=== PATIENT | male | born 1965 | race African-American/Black ===

== ENCOUNTER → 2017-09-30 | Emergency (ER) | payer MEDICAID, OTHER ==
[~2017-09-30] VITALS: Ht 180.3 cm; Wt 81.2 kg
[~2017-09-30] MED LIST: ALBUTEROL SULF8.5 GM INH; AZITHROMYCIN250 MG ORAL; BACTRIM-DS1 EA PO; HYDROCHLOROTH12.5 M2 ORAL; IBUPROFEN600 MG ORAL; KEFLEX500 MG ORAL; KEFLEX500 MG PO; Lidocaine 1% Plain 30 ml INJ ONE; NORCO 10-325 T1 EACH PO; NORCO 5-325 TA1 EACH ORAL; Norco 7.5mg/325mg tab ORAL ONE; POTASSIUM CHLO20 ME1 PO; VICODIN 5-5001 EACH PO; bp med
[2017-09-30 17:30] VITALS: BP 143/98
[2017-09-30 20:37] LABS: EOSINOPHILS % (AUTO) 0.6 % (0.0-3.0); LYMPHOCYTES % (AUTO) 26.7 % (20.0-45.0); MEAN CORPUSCULAR HEMOGLOBIN 27.9 PG (27.0-31.0); MEAN CORPUSCULAR HGB CONC 30.4 G/DL (32.0-36.0); MEAN CORPUSCULAR VOLUME 92 FL (80-99); MEAN PLATELET VOLUME 9.3 FL (6.5-10.1); MONOCYTES % (AUTO) 8.1 % (1.0-10.0); NEUTROPHILS % (AUTO) 63.7 % (45.0-75.0); PLATELET COUNT 162 K/UL (150-450); RED BLOOD COUNT 5.48 M/UL (4.70-6.10); RED CELL DISTRIBUTION WIDTH 12.3 % (11.6-14.8); WHITE BLOOD COUNT 12.1 K/UL (4.8-10.8)
--- NOTE | 2017-09-30 21:03 | Emergency Room Report ---
History of Present Illness General Chief Complaint: Pain Source: Patient (Estefania Duffy) Present Illness HPI 52-year-old male presents to the emergency department complaining of 10 out of 10 in severity localized pain to the left elbow times one week. Patient states that since yesterday he has had progressive swelling, mild erythema and pain with flexion or extension of the elbow. Patient states that intermittently he will notice some numbness and tingling that shoots down into the hand however his main symptom is pain. Patient denies appreciable trauma or fall he denies history of swollen tender joints in the past he denies history of gout he denies fevers, chills or recent open wounds near the affected joint. Denies gross loss of sensation or gross motor movements of the extremities, incontinence of bowel or bladder. Denies CP, Palpitations, LOC, AMS, dizziness, Changes in Vision, Sensation, paresthesias, or a sudden severe headache. (Estefania Duffy) Allergies: Coded Allergies: No Known Allergies (Unverified , 09/26/12) Patient History Past Medical History: see triage record Past Surgical History: none Pertinent Family History: none Reviewed Nursing Documentation: PMH: Agreed, PSxH: Agreed (Estefania Duffy) Nursing Documentation-PMH Past Medical History: No History, Except For Hx Hypertension: Yes Hx Asthma: Yes (Estefania Duffy) Review of Systems All Other Systems: negative except mentioned in HPI (Estefania Duffy) Physical Exam Vital Signs Date Time Temp Pulse Resp B/P (MAP) Pulse Ox O2 Delivery O2 Flow Rate FiO2 09/30/17 17:24 98.2 85 18 143/98 97 Room Air Sp02 EP Interpretation: reviewed, normal General Appearance: alert, GCS 15, non-toxic, mild distress Head: normocephalic, atraumatic Eyes: bilateral eye normal inspection, bilateral eye PERRL ENT: hearing grossly normal, normal voice Neck: full range of motion Respiratory: lungs clear, normal breath sounds, speaking full sentences Cardiovascular #1: regular rate, rhythm, normal capillary refill Rectal: deferred Musculoskeletal: back normal, gait/station normal, inflammation - LEFT ELBOW, swelling - LEFT ELBOW, tender - TTP to the LEFT ELBOW, pain with ROM Neurologic: alert, oriented x3, responsive, motor strength/tone normal, sensory intact, normal gait, speech normal Skin: no rash, warm/dry, well hydrated, other - mild erythema of the left elbow (Estefania Duffy) Procedures Additional Procedure Procedure Narrative Procedure: Left elbow arthrocentesis Full sterile precautions Prepped with Betadine Local anesthesia with 1% lidocaine, 5 mL Injected into joint No fluid obtained Patient tolerated procedure well (Keyonna Aggarwal M.D.) Medical Decision Making PA Attestation Dr. Aggarwal is my supervising Physician whom patient management has been discussed with. (Estefania Duffy) Diagnostic Impression: Primary Impression: Elbow pain, left ER Course 52-year-old male presents to the emergency department complaining of 10 out of 10 in severity localized pain to the left elbow times one week. Patient states that since yesterday he has had progressive swelling, mild erythema and pain with flexion or extension of the elbow. Patient states that intermittently he will notice some numbness and tingling that shoots down into the hand however his main symptom is pain. Patient denies appreciable trauma or fall he denies history of swollen tender joints in the past he denies history of gout he denies fevers, chills or recent open wounds near the affected joint. Denies gross loss of sensation or gross motor movements of the extremities, incontinence of bowel or bladder. Denies CP, Palpitations, LOC, AMS, dizziness, Changes in Vision, Sensation, paresthesias, or a sudden severe headache. Ddx considered but are not limited to cellulitis, Septic joint, pseudogout fracture, d/L, gout, tendonitis just to name a few. Vital signs: are WNL, pt. is afebrile H&PE are most consistent with inflammation of the left elbow without acute trauma. ORDERS: -CBC: WBC elevated 12.1 -CMP: pending -ESR:Pending -CRP: elevated at 4.9 -X-ray Left Elbow 3 views: negative for acute fx or dislocation, posterior tendon calcification noted, no fat pads. ED INTERVENTIONS: -Lebeau PO -Supervising physician is consulted due to complexity of pt. presentation requiring laboratory work-up , imaging, and administration of opiates. I feel it is necessary to involve the attending physician. DISPOSITION: Pt is signed out to Dr. Aggarwal - She consulted Dr Palacios ( Ortho). and determined final disposition. Labs Test 09/30/17 20:00 White Blood Count 12.1 K/UL (4.8-10.8) Red Blood Count 5.48 M/UL (4.70-6.10) Hemoglobin 15.3 G/DL (14.2-18.0) Hematocrit 50.3 % (42.0-52.0) Mean Corpuscular Volume 92 FL (80-99) Mean Corpuscular Hemoglobin 27.9 PG (27.0-31.0) Mean Corpuscular Hemoglobin Concent 30.4 G/DL (32.0-36.0) Red Cell Distribution Width 12.3 % (11.6-14.8) Platelet Count 162 K/UL (150-450) Mean Platelet Volume 9.3 FL (6.5-10.1) Neutrophils (%) (Auto) 63.7 % (45.0-75.0) Lymphocytes (%) (Auto) 26.7 % (20.0-45.0) Monocytes (%) (Auto) 8.1 % (1.0-10.0) Eosinophils (%) (Auto) 0.6 % (0.0-3.0) Basophils (%) (Auto) 1.0 % (0.0-2.0) C-Reactive Protein, Quantitative 4.9 mg/dL (0.00-0.90) (Estefania Duffy.A.) ER Course 52-year-old male, one week of left elbow pain and swelling At this time I have lower suspicion for septic arthritis, patient has a WBC count of 12.1 but no left shift, ESR and CRP normal, patient does not have any fever or any chills. Likely his infected bursitis. I discussed the case with orthopedic doctor Dr Palacios, patient can see him this week in his office Strict return precautions discussed with patient such as high fever chills, worsening pain Instructed to take antibiotics as directed (Keyonna Aggarwal M.D.) Other X-Ray Diagnostic Results Other X-Ray Diagnostic Results : X-Ray ordered: Left Elbow # of Views/Limited Vs Complete: 3 View Indication: Swelling EP Interpretation: Yes PA Xray: Interpretation reviewed, by supervising MD, and agrees with findings. Interpretation: no dislocation, no soft tissue swelling Impression: No acute disease - negative for acute fx or dislocation, posterior tendon calcification noted, no fat pads. Electronically Signed by: Estefania Duffy PA-C (Estefania Duffy) Last Vital Signs Date Time Temp Pulse Resp B/P (MAP) Pulse Ox O2 Delivery O2 Flow Rate FiO2 09/30/17 17:30 98.2 86 18 143/98 97 Room Air (Estefania Duffy.Daniel) Disposition: HOME, SELF-CARE Condition: Improved Signed Out To: Dr. Aggarwal Physician Consult: Dr. Aggarwal (Estefania Duffy) Scripts Hydrocodone Bit/Acetaminophen 5-325* (NORCO 5-325*) 1 Each Tablet 1 TAB ORAL Q6H Y for For Pain, #20 TAB 0 Refills Prov: Keyonna Aggarwal M.D. 09/30/17 Cephalexin* (KEFLEX*) 500 Mg Capsule 500 MG ORAL Q6H, #28 CAP 0 Refills Prov: Keyonna Aggarwal M.D. 09/30/17 Referrals: NON PHYSICIAN (PCP) Patient Instructions: Elbow Bursitis, [id number] Additional Instructions: PLEASE FOLLOW UP AT DR. BETH'S OFFICE THIS WEEK PLEASE CALL TO MAKE AN APPOINTMENT [id number], [place] [address] Please return to the emergency room if you're experiencing high fever, high chills, worsening pain, inability to take your antibiotics Estefania Duffy Sep 30, 2017 21:03 Keyonna Aggarwal M.D. Sep 30, 2017 22:04
[2017-09-30 22:09] VITALS: BP 140/91
[2017-09-30 22:13] LABS: ALANINE AMINOTRANSFERASE 23 U/L (12-78); ALBUMIN/GLOBULIN RATIO 0.8 (1.0-2.7); ANION GAP 9 mmol/L (5-15); ASPARTATE AMINO TRANSFERASE 35 U/L (15-37); CALCIUM 9.5 MG/DL (8.5-10.1); CARBON DIOXIDE 24 MMOL/L (21-32); CHLORIDE 102 MMOL/L (98-107); CREATININE 1.1 MG/DL (0.55-1.30); GLOMERULAR FILTRATION RATE > 60 mL/min (>60); POTASSIUM 4.4 MMOL/L (3.5-5.1); SODIUM 135 MMOL/L (136-145); TOTAL PROTEIN 8.8 G/DL (6.4-8.2)
--- NOTE | 2017-10-01 17:24 | Diagnostic Imaging Report ---
Indications:Reason For Exam: PAIN Technique: Three or 4 views of the left elbow Comparison: None Findings: No acute fractures. No dislocations. Joint spaces are preserved. No definite effusion. There is an olecranon spur noted Impression: No definite acute bony trauma Degenerative changes, as described
== END | disposition home or self-care (01) ==
LOC: EMR 18:00
DX: M25.522 Pain in left elbow (principal); M79.89 Other specified soft tissue disorders; I10 Essential (primary) hypertension; J45.909 Unspecified asthma, uncomplicated
CPT/HCPCS: 20605; 36415; 73080; 80053; 85025; 85651; 86140; 87040; 99284; J2001; Z7502

== ENCOUNTER 2019-08-30 04:09 | Emergency (ER) | payer MEDICAID, OTHER ==
[~2019-08-30] VITALS: Ht 180.3 cm; Wt 137.0 kg
[~2019-08-30 04:09] MED LIST changes: -Lidocaine 1% Plain 30 ml INJ ONE; -Norco 7.5mg/325mg tab ORAL ONE
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
[2019-08-30 04:27] VITALS: BP 137/97
[2019-08-30] MEDS ORDERED: Tetanus/Diptheria/Pertussis IM ONE (04:30)
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
[2019-08-30] MEDS ORDERED: Bacitracin Oint UD TOPIC ONE (05:00)
[2019-08-30] MEDS ORDERED: Acetaminophen 500mg (ES) tab ORAL ONE (05:15)
[2019-08-30] MEDS ORDERED: IBUPROFEN600 MG ORAL (05:22)
[2019-08-30] MEDS ORDERED: BACITRACIN ZIN1 EACH TOPIC (05:23)
--- NOTE | 2019-08-30 05:28 | NUR ---
ER Nurse Note: Thumb spika applied; ointment appled to face wound. Pt tolerated all orders well. Awaiting orders. Will continue to montior.
[2019-08-30 05:39] VITALS: BP 137/97
--- NOTE | 2019-08-30 05:40 | NUR ---
ED Nurse Note: Pt cleared by health care Provider for discharge. DC instructions/prescription was given and explained to pt and verbalized understanding of teachings. All medical deviecs such as ID band removed. Pt is AAO x4, ambulatory and left with all personal belongings.
--- NOTE | 2019-08-30 05:42 | Diagnostic Imaging Report ---
EXAM: XR Right Fingers, 2 or More Views CLINICAL HISTORY: PAIN TECHNIQUE: Frontal, lateral and oblique views of the fingers of the right hand. COMPARISON: none FINDINGS: Bones joints: There is deformity to the base of the first metacarpal suggesting an old, healed fracture. No acute osseous abnormality is shown by x-ray. No dislocation. Soft tissues: Soft tissues show mild edema along the radial aspect of the distal right wrist. No radiopaque foreign body. IMPRESSION: No acute osseous abnormality. Mild edema in the distal radial right wrist is incidentally noted. MRI could be pursued in further evaluation if clinically warranted.
== END 2019-08-30 05:43 | disposition home or self-care (01) ==
LOC: EMR 04:27
DX: S00.83XA Contusion of other part of head, initial encounter (principal); S63.601A Unspecified sprain of right thumb, initial encounter; M18.9 Osteoarthritis of first carpometacarpal joint, unspecified; E66.9 Obesity, unspecified; I10 Essential (primary) hypertension; Y04.2XXA Assault by strike against or bumped into by another person, initial encounter; Y92.9 Unspecified place or not applicable; Z23 Encounter for immunization
CPT/HCPCS: 29125; 86803; 87517; 90471; 90715; 99283